=== PATIENT | female | born 1965 | race Caucasian/White ===

== ENCOUNTER 2020-12-30 12:10 | Outpatient (CLI) | payer OTHER, SELFPAY ==
--- NOTE | 2020-12-30 12:19 | XR_ITS ---
WS: [id number] Cervical spine, 3 views, 12/30/2020 Clinical Data: PAIN Comparison: None. Findings: No compression fractures are seen. There is disc space narrowing at C4-C5, C5-C6 and C6-C7. No subluxation is seen. There is anterior osteoarthritic spurring from C4 through C7. There is no pr evertebral soft tissue swelling. The odontoid is unremarkable. The soft tissues of the neck and the l tahir apices are normal. XR/XR cervical spine 3V* [id number] Impression: 1. 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 2. Degenerative disc narrowing at C4-C5, C5-C6 and C6-C7.
--- NOTE | 2020-12-30 12:19 | XR_ITS ---
WS: [id number] Lumbar spine, 3 views, 12/30/2020 Clinical Data: PAIN Comparison: None. Findings: No compression fractures or subluxation is seen. Degenerative disc narrowing at L5-S1 is present. The transverse processes and SI joints are normal. There is anterior osteophyte spurring at L2-L5. XR/XR lumbar spine 2-3V* [id number] Impression: 1. Anterior osteophytic spurring L2-L5. 2. Degenerative disc narrowing at L5-S1.
== END 2020-12-30 12:11 | disposition home or self-care (01) ==
LOC: RAD 12:18
PROVIDERS: Visit Provider Dermatology
DX: M54.5 Low back pain (principal); M47.812 Spondylosis without myelopathy or radiculopathy, cervical region
CPT/HCPCS: 72040; 72100

== ENCOUNTER 2021-02-17 12:53 | Outpatient (CLI) | payer MEDICAID, SELFPAY ==
--- NOTE | 2021-02-17 12:56 | MR_ITS ---
WS: [id number] MRI LUMBAR SPINE NONCONTRAST HISTORY: LUMBAR RADICULOPATHY COMPARISON: None available. TECHNIQUE: Sagittal and axial multisequence imaging is submitted. Small disc protrusion at T8-9 contacting the ventral thoracic cord. Normal posterior lumbar alignment. No marrow edema or fracture. Advanced degenerative disc disease at L5-S1. Conus terminates normally at L1-2 disc level. L1-L2: Normal. L2-L3: Mild ligamentum flavum disease and facet arthritis. No stenosis. L3-L4: Mild ligamentum flavum disease and facet arthritis. No stenosis. L4-L5: Very mild annular disc bulging and facet and ligamentum flavum arthritis. Mild narrowing of th e LEFT foramen. L5-S1: Moderate annular disc bulging and osteophytic ridging. Mild narrowing of the foramen but no hi gh-grade stenosis. Mild disc contact on the nerve roots. MR/MR lumbar spine wo con* [id number] IMPRESSION: 1. Mild bilateral foraminal narrowing at L5-S1 and on the LEFT at L4-5. No sig nificant disc contact or displacement on the nerve roots. 2. Advanced degenerative disc disease at L5-S1.
--- NOTE | 2021-02-17 12:56 | MR_ITS ---
WS: [id number] MRI CERVICAL SPINE NONCONTRAST HISTORY: CERVICAL RADICULOPATHY COMPARISON: None available. Technique: Multiplanar, multisequence noncontrast imaging of the cervical spine. Straightening of the normal cervical lordosis. Slight reversal at the C4-5 level. There is a very small amount of edema within the C5 and C6 vertebral bodies. No fractures. Disc space narrowing and desiccation is mild. Craniocervical junction, C1 and C2 relationship, odontoid process and soft tissues are normal. C2-C3: Normal. C3-C4: Mild annular disc bulging and osteophytic ridging. Mild RIGHT foraminal narrowing due to disc osteophyte. C4-C5: Diffuse annular disc bulging and osteophytic ridging. Very mild central and bilateral foramina l stenosis due to disc osteophyte disease. C5-C6: Central disc protrusion and annular disc bulging with vertebral body osteophytes extending int o the foramina. Mild central with [id number] bilateral foraminal stenosis. C6-C7: Shallow central disc protrusion with mild foraminal narrowing due to osteophyte disease. C7-T1: Normal. Paraspinal soft tissue are normal. MR/MR cervical spin wo con* [id number] IMPRESSION: 1. No high-grade central stenosis. 2. Disc osteophyte disease is most significant at C4-5 and C5-6 with disc and osteophyte encroachment upon the ventral thecal sac and foramina. 3. Mild central and bilateral foraminal stenosis at C4-5. 4. Mild central with [id number] bilateral foraminal stenosis at C5-6. 5. Small central disc protrusions at C5-6 and C6-7.
== END 2021-02-17 12:54 | disposition home or self-care (01) ==
LOC: RADSHAW 12:55
PROVIDERS: PCP Physician Assistant; Visit Provider Physician Assistant
DX: M54.16 Radiculopathy, lumbar region (principal); M51.37 Other intervertebral disc degeneration, lumbosacral region; M25.78 Osteophyte, vertebrae; M48.02 Spinal stenosis, cervical region; M50.222 Other cervical disc displacement at C5-C6 level
CPT/HCPCS: 72141; 72148

== ENCOUNTER 2022-01-03 13:21 | Outpatient (CLI) | payer MEDICAID, SELFPAY ==
--- NOTE | 2022-01-03 13:49 | MM_ITS ---
WS: [id number] BILATERAL 3D TOMOSYNTHESIS DIGITAL SCREENING MAMMOGRAPHY WITH CAD CLINICAL INFORMATION: SCREENING HISTORY: Screening mammogram. No current complaints. COMPARISON: November 25, 2019 TECHNIQUE: Bilateral CC and MLO views. FINDINGS: The breasts are composed of heterogeneous fibroglandular density tissue, which can limit the detectio n of small underlying mass lesions. A few punctate and lucent centered calcifications. Biopsy marker RIGHT breast. No suspicious mass, asymmetry, calcifications, or architectural distortion. No evidence of malignancy. MM/[place] [id number] IMPRESSION: BI-RADS: 2-Benign FOLLOW UP: 1 Year Follow-up Recommend return to annual screening mammography.
== END 2022-01-03 13:22 | disposition home or self-care (01) ==
PROVIDERS: PCP Physician Assistant; Visit Provider Physician Assistant
DX: Z12.31 Encounter for screening mammogram for malignant neoplasm of breast (principal); Q82.8 Other specified congenital malformations of skin
CPT/HCPCS: 17110; 77063; 77067; 99203

== ENCOUNTER → 2022-03-01 15:17 | Outpatient (BNVA) | payer MEDICAID, SELFPAY | PROVIDERS: PCP Physician Assistant; Visit Provider Podiatrist Foot & Ankle Surgery | DX: Q82.8 Other specified congenital malformations of skin (principal); M79.672 Pain in left foot | CPT/HCPCS: 17110; 73630 ==

== ENCOUNTER → 2022-04-13 13:25 | Outpatient (BNVA) | payer MEDICAID, SELFPAY | PROVIDERS: PCP Physician Assistant; Visit Provider Podiatrist Foot & Ankle Surgery | DX: M79.672 Pain in left foot (principal); Q82.8 Other specified congenital malformations of skin | CPT/HCPCS: 17110 ==

== ENCOUNTER → 2022-05-16 12:54 | Outpatient (BNVA) | payer MEDICAID, SELFPAY | PROVIDERS: PCP Physician Assistant; Visit Provider Nurse Practitioner | DX: G43.709 Chronic migraine without aura, not intractable, without status migrainosus (principal) | CPT/HCPCS: 99204 ==

== ENCOUNTER → 2022-09-22 15:30 | Outpatient (BNVA) | payer MEDICAID, SELFPAY | PROVIDERS: PCP Physician Assistant; Visit Provider Obstetrics & Gynecology | DX: R68.82 Decreased libido (principal); Z01.419 Encounter for gynecological examination (general) (routine) without abnormal findings | CPT/HCPCS: 84403; 87624 ==

== ENCOUNTER 2022-12-23 16:12 | Emergency (ER) | payer MEDICAID, SELFPAY ==
[2022-12-23 16:42] VITALS: BP 146/97; PULSE 105; RESP 16; TEMP 37.2; O2SAT 100; BMI 30.2
[2022-12-23 18:02] LABS: Basophils # 0.1 10^3/uL (0.0-0.1); Basophils % 0.7 %; Eosinophils # 0.1 10^3/uL (0.0-0.8); Eosinophils % 0.9 %; Hematocrit 45.1 % (37.0-47.0); Hemoglobin 14.6 g/dL (11.5-15.3); Lymphocytes # 3.4 10^3/uL (0.8-4.8); Lymphocytes % 25.6 %; Mean Corpuscular HGB Conc 32.4 g/dL (30.0-36.0); Mean Corpuscular Hemoglobin 32.4 pg (28.0-34.0); Mean Corpuscular Volume 100.2 fl (81-99); Mean Platelet Volume 10.8 fL (7.4-10.4); Monocytes # 0.6 10^3/uL (0.2-0.9); Monocytes % 4.3 %; Neutrophils # 8.99 10^3/uL (1.8-7.7); Neutrophils % 68.3 %; Nucleated Red Blood Cells % 0 %; Platelet Count 245 10^3/cmm (130-400); White Blood Count 13.2 10^3/uL (4.0-10.0)
[2022-12-23 18:29] LABS: Alanine Aminotransferase 25 U/L (0-33); Albumin Level 4.8 g/dL (3.5-5.2); Alkaline Phosphatase 127 U/L (35-105); Aspartate Amino Transferase 29 U/L (0-32); Blood Urea Nitrogen 14 mg/dL (6-20); Calcium 8.7 mg/dL (8.5-10.5); Carbon Dioxide 23 mmol/L (22-29); Chloride 104 mmol/L (98-107); Creatinine Clr Calc Pharmacy 100.3425; Globulin 3.4 g/dL (1.3-4.6); Glomerular Filtration Rate 103.8 mL/min (90-130); Glucose 110 mg/dL (65-115); Lipase 19 U/L (13-60); Osmolality Calculated 293 mOsm/kg (285-295); Sodium 141 mmol/L (136-145); Total Bilirubin 0.5 mg/dL (0.15-1.2); Total Protein 8.2 g/dL (6.6-8.7)
--- NOTE | 2022-12-23 20:35 | CTR_ITS ---
PROCEDURE INFORMATION: Exam: CT Abdomen And Pelvis Without Contrast Exam date and time: 12/23/2022 8:38 PM Age: 57 years old Clinical indication: Pain and condition or disease; Hernia; Abdominal pain; Prior surgery; Surgery type: Bi ovarian cystectomy; Tubal ligation; Additional info: Llq pain HX hernia TECHNIQUE: Imaging protocol: Computed tomography of the abdomen and pelvis without contrast. Radiation optimization: All CT scans at this facility use at least one of these dose optimization techniques: automated exposure control; mA and/or kV adjustment per patient size (includes targeted exams where dose is matched to clinical indication); or iterative reconstruction. REPORTING DATA: Count of CT and Cardiac NM exams in prior 12 months: This patient has received 0 known CTs and 0 known cardiac nuclear medicine studies in the 12 months prior to the current study. COMPARISON: MR lumbar spine wo con* [id number] 02/17/2021 1:32 PM RADIATION DOSE METRICS: Total DLP (mGy-cm): 662.79 FINDINGS: Liver: 2.3 and 2.4 cm low-density fatty lesions with surrounding calcification in the anterior portion of the right liver, segment 8. Gallbladder and bile ducts: Normal. No calcified stones. No ductal dilation. Pancreas: Normal. No ductal dilation. Spleen: Normal. No splenomegaly. Adrenal glands: Normal. No mass. Kidneys and ureters: Normal. No hydronephrosis. Stomach and bowel: Within the hernia there is also 4.0 x 3.0 x 2.2 cm severe epiploic appendagitis with surrounding inflammation. Coronal series 5, image 18, sagittal series 6, image 19. Axial series 3, image 72. Appendix: No evidence of appendicitis. Intraperitoneal space: Unremarkable. No free air. No significant fluid collection. Vasculature: Calcification of the abdominal aorta and/or iliac arteries consistent with atherosclerotic vessel disease. Lymph nodes: Unremarkable. No enlarged lymph nodes. Urinary bladder: Unremarkable as visualized. Reproductive: 4.8 x 4.5 x 3.6 cm partially calcified right ovary versus other lesion consistent with ovarian neoplasm versus other benign or malignant lesion. Bones/joints: Severe L5-S1 degenerative disc disease and spondylosis with Modic type III sclerotic endplate degenerative changes. Soft tissues: Left lower quadrant hernia which could represent inferior spigelian hernia containing a loop of sigmoid colon. CT/CT abdomen pelvis wo con [id number] IMPRESSION: 1. 2.3 and 2.4 cm low-density fatty lesions with surrounding calcification in the anterior portion of the right liver, segment 8. 2. Left lower quadrant hernia which could represent inferior spigelian hernia containing a loop of sigmoid colon. 3. Within the hernia there is also 4.0 x 3.0 x 2.2 cm severe epiploic appendagitis with surrounding inflammation. Coronal series 5, image 18, sagittal series 6, image 19. Axial series 3, image 72. 4. 4.8 x 4.5 x 3.6 cm partially calcified right ovary versus other lesion consistent with ovarian neoplasm versus other benign or malignant lesion.
--- NOTE | 2022-12-23 20:49 | ED_ITS ---
HPI - Abdominal Pain General: Chief Complaint: Abdominal Pain Stated Complaint: Jim sent/hernia pain Time Seen by Provider: 12/23/22 20:05 Source: patient History of Present Illness: 57-year-old female with a history of left sided groin hernia. She presents from her PCP clinic today, as it had become more tender. Evidently they tried to reduce the hernia, and could not so they sent here for a CT . She is having left lower quadrant pain. No fever, no vomiting, no diarrhea, no blood in the stool. She also has a tick on my back that she would like removed MD elicited complaint: abdominal pain Pertinent past history: other Onset (ago): hour(s) Pain Consistency: constant Location: LLQ Severity: moderate Quality: aching and sharp Radiation: none Migration to: no migration Exacerbating factors: movement Relieving factors: nothing Associated Symptoms: Denies belching, chills, constipation, diarrhea, fever(s), hematochezia, melena, nausea and vomiting Review of Systems Const: Denies: fever(s) or chills Card: Denies: chest pain Resp: Denies: dyspnea GI: Denies: nausea, vomiting, diarrhea, constipation, belching, hematochezia or melena PFSH ED PFSH: Family History Mother Diabetes Stroke Father Diabetes Hypertension Stroke Brother Diabetes Sister Diabetes Denies family history of Colon cancer Ovarian cancer Heart disease Hypercholesteremia Breast cancer Uterine cancer Thyroid disease Physical Exam Const: COMMON NORMALS: no acute distress GENERAL APPEARANCE: cooperative; not ill appearing and not frail appearing HENMT: COMMON NORMALS: normocephalic, atraumatic and Normal external nose present HEAD & SCALP: normocephalic and atraumatic FACE & SINUS: normal facial exam and face symmetric NOSE: Normal external nose present Eye: COMMON NORMALS: Equal, round and reactive pupils present and EOMs intact bilaterally PUPIL: Yes Equal, round and reactive pupils present Neck/C-Spine: GENERAL: Yes trachea midline Chest: CHEST: Yes Symmetrical chest wall rise Resp: COMMON NORMALS: normal respiratory effort, No retractions, No use of accessory muscles and clear to auscultation bilaterally AUSCULTATION: clear to auscultation bilaterally Cardio: COMMON NORMALS: regular rate and regular rhythm RATE: regular rate RHYTHM: regular rhythm GI: OTHER: Tenderness in the left lower quadrant. Palpable mass there. Some discoloration of the skin. It is not hot. Extremity: COMMON NORMALS: no pedal edema Neuro: EMILIA COMA SCALE: document GCS findings Emilia coma scale eye opening: Spontaneous Kindred coma scale verbal response: Orientated Kindred coma scale motor response: Obey commands Emilia coma scale total score: 15 SENSORY EXAM: Yes extremities (intact) Psych: COMMON NORMALS: speech normal SPEECH: Yes normal speech Skin: NARRATIVE SKIN EXAM: Wood tick along the lateral angle of the scapula on the right. Removed with tweezers Course Vital Signs: Vital signs: Vital Signs Temperature 98.9 F 12/23/22 16:42 Pulse Rate 105 H 12/23/22 16:42 Respiratory Rate 16 12/23/22 16:42 Blood Pressure 146/97 12/23/22 16:42 Pulse Oximetry 100 12/23/22 16:42 Oxygen Delivery Me thod 12/23/22 16:42 MDM - Abdominal Pain Medical Decision Making Patient with what on exam appears to be incarcerated left lower quadrant hernia. It is tender on palpation. There are some mild discoloration of the skin. Her vitals are normal. Her white blood cell count is 13. BMP is normal. Urinalysis has not yet been collected her lipase is normal, liver enzymes are normal. She was sent for CT, which has not been read by radiology yet. On my read, there appears to be inflamed loop of bowel in the hernia. IV was ordered for pain medication and/or sedation for the patient to manually reduce the hernia. When the nurse came into the room to start the IV, the patient took her tourniquet off, and said that she wanted to leave. I reevaluated the patient, and told her that there was a problem in her hernia, that there appeared to be an inflamed loop of intestine in her hernia, and if it loses blood supply, it could become necrotic and making her extremely sick and/or septic, and could from this condition. She was told that reduction was necessary to prevent this, that if we could not reduce the hernia, that we would call surgery, and she would likely be admitted. We also told her that after the hernia was reduced successfully in the ER, there was a chance she could go home. She still elected to sign papers to leave AGAINST MEDICAL ADVICE Lab Data 12/23/22 17:54 12/23/22 17:54 Labs/Radiology: Radiology Impressions Abdomen/Pelvis CT 12/23/22 20:35 IMPRESSION: 1. 2.3 and 2.4 cm low-density fatty lesions with surrounding calcification in the anterior portion of the right liver, segment 8. 2. Left lower quadrant hernia which could represent inferior spigelian hernia containing a loop of sigmoid colon. 3. Within the hernia there is also 4.0 x 3.0 x 2.2 cm severe epiploic appendagitis with surrounding inflammation. Coronal series 5, image 18, sagittal series 6, image 19. Axial series 3, image 72. 4. 4.8 x 4.5 x 3.6 cm partially calcified right ovary versus other lesion consistent with ovarian neoplasm versus other benign or malignant lesion. Laboratory Results WBC 13.2 10^3/uL (4.0-10.0) H 12/23/22 17:54 RBC 4.50 10^6/uL (4.1-5.3) 12/23/22 17:54 Hgb 14.6 g/dL (11.5-15.3) 12/23/22 17:54 Hct 45.1 % (37.0-47.0) 12/23/22 17:54 MCV 100.2 fl (81-99) H 12/23/22 17:54 MCH 32.4 pg (28.0-34.0) 12/23/22 17:54 MCHC 32.4 g/dL (30.0-36.0) 12/23/22 17:54 RDW 13.0 % (12.1-15.1) 12/23/22 17:54 Plt Count 245 10^3/cmm (130-400) 12/23/22 17:54 MPV 10.8 fL (7.4-10.4) H 12/23/22 17:54 Neut % (Auto) 68.3 % 12/23/22 17:54 Lymph % (Auto) 25.6 % 12/23/22 17:54 Dougherty % (Auto) 4.3 % 12/23/22 17:54 Eos % (Auto) 0.9 % 12/23/22 17:54 Baso % (Auto) 0.7 % 12/23/22 17:54 Neut # (Auto) 8.99 10^3/uL (1.8-7.7) H 12/23/22 17:54 Lymph # (Auto) 3.4 10^3/uL (0.8-4.8) 12/23/22 17:54 Dougherty # (Auto) 0.6 10^3/uL (0.2-0.9) 12/23/22 17:54 Eos # (Auto) 0.1 10^3/uL (0.0-0.8) 12/23/22 17:54 Baso # (Auto) 0.1 10^3/uL (0.0-0.1) 12/23/22 17:54 Nucleated RBC % (auto) 0 % 12/23/22 17:54 Nucleated RBCs # 0.0 /100WBC 12/23/22 17:54 Sodium 141 mmol/L (136-145) 12/23/22 17:54 Potassium 4.0 mmol/L (3.5-5.1) 12/23/22 17:54 Chloride 104 mmol/L (98-107) 12/23/22 17:54 Carbon Dioxide 23 mmol/L (22-29) 12/23/22 17:54 Anion Gap 18.0 (5-19) 12/23/22 17:54 BUN 14 mg/dL (6-20) 12/23/22 17:54 Creatinine 0.6 mg/dL (0.5-0.9) 12/23/22 17:54 GFR Calculation 103.8 mL/min (90-130) 12/23/22 17:54 Glucose 110 mg/dL (65-115) 12/23/22 17:54 Calculated Osmolality 293 mOsm/kg (285-295) 12/23/22 17:54 Calcium 8.7 mg/dL (8.5-10.5) 12/23/22 17:54 Total Bilirubin 0.5 mg/dL (0.15-1.2) 12/23/22 17:54 AST 29 U/L (0-32) 12/23/22 17:54 ALT 25 U/L (0-33) 12/23/22 17:54 Alkaline Phosphatase 127 U/L (35-105) H 12/23/22 17:54 Total Protein 8.2 g/dL (6.6-8.7) 12/23/22 17:54 Albumin 4.8 g/dL (3.5-5.2) 12/23/22 17:54 Globulin 3.4 g/dL (1.3-4.6) 12/23/22 17:54 Lipase 19 U/L (13-60) 12/23/22 17:54 Discharge Plan Discharge Patient Disposition: Left Against Medical Advice Clinical Impression: Abdominal pain, Spigelian hernia Condition: Stable Prescriptions: No Action Prempro 0.3-1.5 mg tablet 1 tab PO DAILY hydrochlorothiazide 12.5 mg tablet 12.5 mg PO DAILY tizanidine 4 mg capsule 4 mg PO BID PRN aspirin 81 mg tablet,delayed release (DR/EC) 81 mg PO DAILY Victoza 3-Addy 0.6 mg/0.1 mL (18 mg/3 mL) pen injector 0.6 mg SUBCUT DAILY venlafaxine [Effexor XR] 37.5 mg capsule,extended release 24hr 37.5 mg PO DAILY pramipexole 0.25 mg tablet 0.25 mg PO DAILY levocetirizine 5 mg tablet 5 mg PO DAILY atorvastatin 20 mg tablet 20 mg PO DAILY albuterol sulfate [ProAir HFA] 90 mcg/actuation HFA aerosol inhaler 2 puff inhalation Q6H PRN oxycodone-acetaminophen 10-325 mg tablet 1 tab PO Q6H PRN topiramate 25 mg tablet 25 mg PO BID Rx Instructions: Take 1 tab by mouth three times daily for 1 week then take 2 tabs twice daily Nurtec ODT 75 mg tablet,disintegrating 75 mg PO ONCE Qty: 10 0RF Rx Instructions: Take at onset of headache - no more than 1 dose per day or 4 doses per week Referrals: Flores Jim PA [Primary Care Provider] - Patient Instructions: Abdominal Pain (ED) Coding Level of Care Code ED Equipment Associate for Della Calixto
== END 2022-12-23 21:36 | disposition left against medical advice (07) ==
PROVIDERS: Nurse Practitioner Family; Emergency Provider Emergency Medicine; PCP Physician Assistant
DX: K43.9 Ventral hernia without obstruction or gangrene (principal); Z53.21 Procedure and treatment not carried out due to patient leaving prior to being seen by health care provider; Z79.82 Long term (current) use of aspirin
CPT/HCPCS: 36415; 74176; 80053; 83690; 85025; 99285; Q9967

== ENCOUNTER → 2023-03-21 15:03 | Outpatient (BNVA) | payer MEDICAID, SELFPAY | PROVIDERS: PCP Physician Assistant; Visit Provider Surgery | DX: K43.9 Ventral hernia without obstruction or gangrene (principal); N83.8 Other noninflammatory disorders of ovary, fallopian tube and broad ligament | CPT/HCPCS: 99203 ==

== ENCOUNTER 2023-04-26 14:10 | Outpatient (CLI) | payer MEDICAID, SELFPAY ==
--- NOTE | 2023-04-26 14:00 | US_ITS ---
WS: [id number] US pelv w/transvag [id number] HISTORY: N83.202 - Unspecified ovarian cyst, left side COMPARISON: CT abdomen and pelvis 12/23/2022. Uterus: 7.1 cm x 3.8 cm x 3.7 cm. Normal size anteverted uterus. No fibroid or mass. Endometrium: 0.4 cm. Normal size. No mass or increased vascularity. Right ovary: 4.3 cm x 4.0 cm x 4.1 cm. Abnormal RIGHT ovary. In the RIGHT adnexa there is a very hypo echoic mass with shadowing essentially replacing what is the expected ovary. This mass measures 4.0 x 4.1 x 4.3 cm. There is a small amount of peripheral vascularity identified. There are a few foci of calcification. Left ovary: Not identified. No adnexal mass. No free fluid in the cul-de-sac. US/US pelv w/transvag [id number] IMPRESSION: 1. Solid mass RIGHT adnexa. This is most consistent with an ovarian mass/neopl asm until proven otherwise and needs to be further evaluated. 2. O-RADS 5; high risk for malignancy. Recommend surgical evaluation. 3. No ascites.
== END 2023-04-26 14:11 | disposition home or self-care (01) ==
PROVIDERS: PCP Physician Assistant; Visit Provider Obstetrics & Gynecology
DX: N83.202 Unspecified ovarian cyst, left side (principal); N83.8 Other noninflammatory disorders of ovary, fallopian tube and broad ligament
CPT/HCPCS: 76830; 76856

== ENCOUNTER 2023-05-15 09:23 | Day surgery (SDC) | payer MEDICAID, SELFPAY ==
[2023-05-15] VITALS (11 sets, daily range): BP systolic 129–201; BP diastolic 81–152; PULSE 57–75; RESP 10–24; TEMP 36.1–36.2; O2SAT 92–100; BMI 30.5
--- NOTE | 2023-05-15 09:32 | PM.HP ---
Providers/Chief Complaint Primary Care Provider: Flores Jim Chief Complaint: 92852 K82.8 History of Present Illness Saloni Bucio is a 58 year old female Medications/Allergies Home Medications Medication Instructions Recorded Confirmed Last Taken Type albuterol sulfate 90 mcg/actuation 2 puff inhalation Q6H PRN 01/03/22 05/12/23 05/12/23 History aerosol inhaler (ProAir HFA) Shortness Of Breath aspirin 81 mg tablet,delayed 81 mg PO DAILY 01/03/22 05/12/23 05/05/23 History release atorvastatin 20 mg tablet 20 mg PO DAILY 01/03/22 05/12/23 05/05/23 History levocetirizine 5 mg tablet 5 mg PO DAILY 01/03/22 05/12/23 05/05/23 History oxycodone-acetaminophen 10 mg-325 1 tab PO Q6H PRN Pain 01/03/22 05/12/23 05/10/23 History mg tablet pramipexole 0.25 mg tablet 0.25 mg PO DAILY 01/03/22 05/12/23 05/11/23 History tizanidine 4 mg capsule 4 mg PO BID PRN Muscle Spasm 01/03/22 05/12/23 05/08/23 History venlafaxine 37.5 mg 37.5 mg PO DAILY PRN Anxiety 01/03/22 05/12/23 05/09/23 History capsule,extended release 24 hr (Effexor XR) Allergies Allergy/AdvReac Type Severity Reaction Status Date / Time varenicline [From Chantix] Allergy Mild Hives Verified 05/15/23 09:29 bee venom protein (honey bee) Allergy Unknown Verified 05/15/23 09:29 grapefruit Allergy Unknown Verified 05/15/23 09:29 PFSH Acute PFSH: Family History Mother Diabetes Stroke Father Diabetes Hypertension Stroke Brother Diabetes Sister Diabetes Denies family history of Colon cancer Ovarian cancer Heart disease Hypercholesteremia Breast cancer Uterine cancer Thyroid disease Social History Substance/Drug Use: never Female Reproductive History: Date of last menstrual period: 09/25/09 Vitals/I&O/Wt Last Vital Signs O2 Del Method Room Air 05/12/23 10:57 A&P Assessment and plan (1) Ventral hernia: Plan Laparoscopic repair of ventral hernia with mesh Attestations Medical Necessity Statement*: Home Coding Level of Care Code Acute Code for Chg Fwd Diagnoses Ventral hernia K43.9
[2023-05-15] MEDS: scopolamine 1.5 Patch 1 PATCH TRANSDERMA (09:37)
[2023-05-15] MEDS: sodium chloride 0.9% 1,000 ML 30 ML IV (09:37)
--- NOTE | 2023-05-15 10:44 | ANES.PREANE2 ---
Pre-Anesthetic Assessment Height/Weight: Height 1.57 m Weight 75.75 kg Temp Pulse Resp BP Pulse Ox O2 Del Method 97.2 F L 68 16 165/86 100 Room Air 05/15/23 09:24 05/15/23 09:24 05/15/23 09:24 05/15/23 09:24 05/15/23 09:24 05/15/23 09:43 Operation Date: 05/15/23 10:30 Proposed Procedures p : 67012 lap repair ventral hernia w/mesh K43.9(Not Applicable) - Marvin Cleveland DO Familial anesthetic complications: none Was Beta Tristin taken within 24 hours: N/A Was Clonidine taken within 24 hours: N/A Last intake: Intake Last Liquid Date 05/14/23 Last Liquid Time 23:00 Last Solid Date 05/14/23 Last Solid Time 23:00 Social Alcohol and Tobacco Exam alert, oriented x 3 and regular rate & rhythm Airway Submandibular: within normal limits Cervical ROM: within normal limits Mallampati: Class II Dentition: chipped (lower) and false (upper) Pulmonary Chronic Obstructive Pulmonary Disease Metabolic Hyperlipidemia and Morbid Obesity Neuropsych Anxiety and Depression Anesthetic Plan ASA status: 3 Anesthesia: General Medications/Allergies Home Medications Medication Instructions Recorded Confirmed Last Taken Type albuterol sulfate 90 mcg/actuation 2 puff inhalation Q6H PRN 01/03/22 05/12/23 05/12/23 History aerosol inhaler (ProAir HFA) Shortness Of Breath aspirin 81 mg tablet,delayed 81 mg PO DAILY 01/03/22 05/12/23 05/05/23 History release atorvastatin 20 mg tablet 20 mg PO DAILY 01/03/22 05/12/23 05/05/23 History levocetirizine 5 mg tablet 5 mg PO DAILY 01/03/22 05/12/23 05/05/23 History oxycodone-acetaminophen 10 mg-325 1 tab PO Q6H PRN Pain 01/03/22 05/12/23 05/10/23 History mg tablet pramipexole 0.25 mg tablet 0.25 mg PO DAILY 01/03/22 05/12/23 05/11/23 History tizanidine 4 mg capsule 4 mg PO BID PRN Muscle Spasm 01/03/22 05/12/23 05/08/23 History venlafaxine 37.5 mg 37.5 mg PO DAILY PRN Anxiety 01/03/22 05/12/23 05/09/23 History capsule,extended release 24 hr (Effexor XR) Allergies Allergy/AdvReac Type Severity Reaction Status Date / Time varenicline [From Chantix] Allergy Mild Hives Verified 05/15/23 09:29 bee venom protein (honey bee) Allergy Unknown Verified 05/15/23 09:29 grapefruit Allergy Unknown Verified 05/15/23 09:29 Current Medications Generic Name Dose Route Start Last Admin Trade Name Freq PRN Reason Stop Dose Admin Sodium Chloride 1,000 mls @ 30 mls/hr 05/15/23 09:30 05/15/23 09:37 Sodium Chloride 0.9% IV 05/16/23 09:29 30 mls/hr .Q24H TEJA Administration PFSH Anesthesia Family History Mother Diabetes Stroke Father Diabetes Hypertension Stroke Brother Diabetes Sister Diabetes Denies family history of Colon cancer Ovarian cancer Heart disease Hypercholesteremia Breast cancer Uterine cancer Thyroid disease Social History Substance/Drug Use: never Female Reproductive History Date of last menstrual period: 09/25/09 Data Anesthesia Cardiac Studies: No Data to Display
[2023-05-15] MEDS: ceFAZolin 2,000 MG in sodium chloride 0.9% (plus) 50 ML 100 MG IV (10:55)
[2023-05-15] MEDS: lidocaine-epi 2% 20 mL INJ INJECTION (11:26)
--- NOTE | 2023-05-15 12:08 | PM.OP ---
Operative Report Date of procedure: May 15, 2023 Pre-op diagnosis: Spigelian hernia Post-op diagnosis: Incarcerated spigelian hernia Procedure done: Laparoscopic repair of incarcerated spigelian hernia Extensive lysis of adhesions Implants: 11.4 cm round Ventralight mesh Specimens removed/disposition: None Surgeon: Dr. Marvin Cleveland DO Anesthesia: General Estimated blood loss (mL): 5 Complications: None apparent Findings: 2 cm hernia defect containing colon and omentum Brief History: This is a very pleasant 58-year-old female who presented to my office this for Galeon hernia. Laparoscopic repair with mesh was indicated. The risk and benefits were explained and documented. Procedure: Patient was wheeled into the operative room and placed on the OR table in a supine position. Abdomen was inspected prepped and draped in usual sterile fashion. Time-out was performed and all present were in agreement. A 15 blade scalp was used to make a stab incision incision left upper quadrant. A Veress needle was placed into the incision and intra-abdominal insufflation was brought to 15 millimeters of mercury. A 5 mm trocar was placed into the right upper quadrant. A 12 millimeter trocar was placed into the right lower quadrant. An inferior left spigelian hernia was identified containing omentum and colon. There were significant dense adhesions causing incarceration of the hernia. A second 5 mm trocar was placed between the 2 trocars. Greater than 30 minutes of lysis of adhesions was performed with the Enseal. Eventually the hernia was reduced and the hernia defect measured 2 cm in diameter. The energy but device was then used to cut out the hernia sac. An 11.4 cm ventral light mesh was placed into the abdomen and brought up through the umbilicus using an the Quinn-Tate. The mesh was then tacked in place in a double crown fashion. The skeleton of the mesh was removed via the left lower quadrant. The hernia sac was then removed from the abdomen via the left lower quadrant. The left lower quadrant port site was closed with an 0 Vicryl suture in a Quinn-Tate in a [id number] fashion. Incisions were closed with 4 O Vicryl in a subcuticular interrupted fashion. Skin glue was applied. Patient tolerated the procedure well.
[2023-05-15] MEDS: labetalol 5 mg/mL SDV 20mL IVP (12:35)
[2023-05-15] MEDS: oxyCODONE-APAP 10-325 mg Tablet 1 TAB PO (13:29)
--- NOTE | 2023-05-15 16:52 | ANE.PACU2 ---
Inpatient post-anesthesia follow up: Airway intact: Yes Vital signs: Temperature 97 F Pulse Rate 57 Respiratory Rate 18 Blood Pressure 138/92 Pulse Oximetry 95 Oxygen Delivery Me thod Room Air Oxygen Flow Rate 6 Fraction of Inspir ed Oxygen Hydration adequate: Yes Nausea and vomiting: No Pain level: 2 Mental status: Baseline
== END 2023-05-15 13:57 | disposition home or self-care (01) ==
PROVIDERS: PCP Physician Assistant; Visit Provider Surgery
PROC: 0WQF4ZZ Repair Abdominal Wall, Percutaneous Endoscopic Approach (ICD-10-PCS; CPT 49592; principal; 2023-05-15 10:30)
DX: K43.9 Ventral hernia without obstruction or gangrene (principal); J44.9 Chronic obstructive pulmonary disease, unspecified; E78.5 Hyperlipidemia, unspecified; E66.01 Morbid (severe) obesity due to excess calories; Z68.30 Body mass index [BMI] 30.0-30.9, adult; Z79.82 Long term (current) use of aspirin
CPT/HCPCS: 49592; C1781; J0690; J1100; J1170; J1200; J2250; J2405; J3010; J3490; J7030

== ENCOUNTER 2023-05-18 16:24 | Emergency (ER) | payer MEDICAID, SELFPAY ==
[2023-05-18] VITALS (7 sets, daily range): BP systolic 119–139; BP diastolic 67–87; PULSE 93–105; RESP 18; TEMP 38.1; O2SAT 92–96
--- NOTE | 2023-05-18 17:37 | XRR_ITS ---
PROCEDURE INFORMATION: Exam: XR Abdomen Exam date and time: 05/18/2023 5:56 PM Age: 58 years old Clinical indication: Abdominal pain; Generalized; Prior surgery; Surgery date: 3-7 days post-operative; Surgery type: Hernia; Additional info: Abd pain, post surgical, PT refused to lay down TECHNIQUE: Imaging protocol: Radiologic exam of the abdomen. Views: 2 Views. Upright and supine views. COMPARISON: CT abdomen pelvis con [id number] 12/23/2022 8:38 PM FINDINGS: Gastrointestinal tract: Scattered gas in the colon and rectum. An air-fluid level projects over the left hip joint, in the region of the hernia on the prior CT. No small bowel obstruction. Intraperitoneal space: Pneumoperitoneum beneath the left and right diaphragm. Bones/joints: Unremarkable for age. XR/XR acute abdomen series [id number] IMPRESSION: 1. Pneumoperitoneum. This could relate to recent surgery but bowel perforation is not excluded. 2. Air-fluid level projecting over the left hip joint is in a similar location as to the previous hernia. A persistent hernia containing bowel or an abscess are not excluded. 3. Follow-up with CT imaging is recommended.
--- NOTE | 2023-05-18 17:38 | ED_ITS ---
HPI - Abdominal Pain General: Chief Complaint: Abdominal Pain Stated Complaint: hernia surgery mon, severe abd pain Time Seen by Provider: 05/18/23 17:36 History of Present Illness: 58-year-old female comes in today with complaints of gas pain. Patient had surgery on Monday for hernia repair. Patient reports that she has had increased pain and discomfort for the last 2 days for what she thinks is gas pain. Patient appears nontoxic. Patient does appear in mild to moderate pain. Patient does report passing of flatus and belching. Associated Symptoms: Reports nausea; Denies chills, constipation, diarrhea, fever(s) and vomiting Review of Systems General: Reports: 10 or more systems reviewed and unremarkable except in HPI and below Const: Denies: fever(s) or chills Card: Denies: chest pain Resp: Denies: dyspnea GI: Reports: abdominal pain and nausea; Denies: vomiting, diarrhea or constipation : Denies: difficulty voiding Musc: Denies: neck pain or back pain Skin/Breast: Denies: rash Neuro: Denies: numbness in extremities PFSH ED PFSH: Family History Mother Diabetes Stroke Father Diabetes Hypertension Stroke Brother Diabetes Sister Diabetes Denies family history of Colon cancer Ovarian cancer Heart disease Hypercholesteremia Breast cancer Uterine cancer Thyroid disease Social History Substance/Drug Use: never Physical Exam Const: COMMON NORMALS: alert HENMT: COMMON NORMALS: normocephalic HEAD & SCALP: normocephalic THROAT: posterior oropharynx normal Neck/C-Spine: COMMON NORMALS: full ROM Resp: COMMON NORMALS: normal respiratory effort and clear to auscultation bilaterally AUSCULTATION: clear to auscultation bilaterally Cardio: COMMON NORMALS: regular rate and regular rhythm RATE: regular rate RHYTHM: regular rhythm GI: COMMON NORMALS: Soft to palpation (Mild distention) PALPATION: Yes Soft to palpation (Mild distention), Yes Tenderness to palpation present (GI) (Incr ease at surgery site), No Guarding due to palpation present (GI) and No Rigid due to palpation Back/Pelvis: COMMON NORMALS: thoracic and lumbar spine normal to inspection Extremity: COMMON NORMALS: no pedal edema Neuro: SENSORIUM/ORIENTATION: Yes alert Skin: COMMON NORMALS: turgor normal GENERAL SKIN EXAM: turgor normal Course ED course: 2049, reviewed CT scan results with Dr. Cleveland, he is concerned for ischemic bowel due to some significant abnormalities with hernia when he repaired it, he is out of town at this time and asks that we would refer patient to colorectal surgery at a tertiary center for further evaluation and treatment. Patient was given a dose of Zosyn and we will contact tertiary center for transfer and further evaluation and treatment. 2149, after discussion with tertiary center the on-call colorectal surgeon felt that the general surgeon should be able to manage this at our facility. I reached out to Dr. Belle and he agreed to come in to evaluate the patient and then talk to the tertiary center. 9, we have attempted placement of patient at [facility] with no bed availability at this time. 29, discussed patient with Dr. Marciano Vaz at [facility] in the [place] they accepted patient for further evaluation and treatment. Vital Signs: Vital signs: Vital Signs Temperature 100.5 F H 05/18/23 16:32 Pulse Rate 98 05/19/23 00:30 Respiratory Rate 18 05/19/23 00:32 Blood Pressure 121/73 05/19/23 00:30 Pulse Oximetry 93 05/19/23 00:30 Oxygen Delivery Me thod Nasal Cannula 05/19/23 00:30 Oxygen Flow Rate 2 05/19/23 00:30 MDM - Abdominal Pain Medical Decision Making 58-year-old female comes in today for what she believes is gas pain postsurgery. Patient had a hernia repair on Monday and has had increased gas pain over the last 2 days. Patient does report belching and passing flatus. On exam patient has some mild distention of the abdomen but is soft to palpation. Patient does have some tenderness at the site of the surgery in the right lower quadrant. Patient denies any chills or fever that she is noted at home. Patient did have a temperature of 100.5 in the emergency department but otherwise normal vital signs. Differential diagnosis includes not limited to bowel obstruction, ileus, postsurgical gas pain, urinary tract infection, pneumonia. CBC was unremarkable, CMP was unremarkable. CT of the chest and abdomen noted some pneumoperitoneum, inflamed distal ascending and proximal sigmoid colon with wall thickening and pneumatosis, and a 5.1 cm air-fluid level in the lower left abdominal wall. I reviewed the abnormalities with Dr. Cleveland, surgeon that had performed the procedure. He recommended the patient be transferred to a colorectal surgeon as he was out of town for further evaluation and treatment. He is concerned that there may be ischemia in the colon due to some com plications during the hernia repair. I was able to get patient accepted at [facility] in [facility]. Patient be transported to their facility for further evaluation and treatment by colorectal surgeon. Lab Data 05/18/23 18:30 05/18/23 18:30 Labs/Radiology: Radiology Impressions Chest/Abdomen X-ray 05/18/23 17:37 IMPRESSION: 1. Pneumoperitoneum. This could relate to recent surgery but bowel perforation is not excluded. 2. Air-fluid level projecting over the left hip joint is in a similar location as to the previous hernia. A persistent hernia containing bowel or an abscess are not excluded. 3. Follow-up with CT imaging is recommended. ADDENDUM: 05/18/235 THIS REPORT CONTAINS FINDINGS THAT MAY BE CRITICAL TO PATIENT CARE. The findings were verbally communicated via telephone conference with Dr Merino at 7:03 PM CDT on 05/18/2023. The findings were acknowledged and understood. Abdomen/Pelvis CT 05/18/23 20:01 IMPRESSION: 1. Inflamed distal descending and proximal sigmoid colon with wall thickening and pneumatosis. This is most likely infectious colitis. Ischemia is not excluded. 2. Pneumoperitoneum with gas anterior to the distal descending colon. This could relate to the recent surgery but rupture of the colon wall is not excluded. 3. 5.1 cm air-fluid level in the lower left abdominal wall, in the region of the previous hernia defect. This may represent normal post surgical fluid and gas, but an early abscess is not excluded. ADDENDUM: 05/18/232039 THIS REPORT CONTAINS FINDINGS THAT MAY BE CRITICAL TO PATIENT CARE. The findings were verbally communicated via telephone conference with BRANDT HOUSTON at 8:39 PM CDT on 05/18/2023. The findings were acknowledged and understood. ADDENDUM: 05/18/232053 4.6 cm partially calcified right adnexal mass is not significantly changed in size upon further review. This could represent a fibroid arising from the right broad ligament. An ovarian neoplasm is not excluded. Surgical consultation is recommended. Laboratory Results WBC 9.81 10^3/uL (3.29-11.43) 05/18/23 18: RBC 3.99 10^6/uL (3.85-5.65) 05/18/23 18:30 Hgb 13.40 g/dL (11.27-16.99) 05/18/23 18:30 Hct 40.7 % (36-47) 05/18/23 18: MCV 102.0 fl (85-98) H 05/18/23 18:30 MCH 33.6 pg (27-33) H 05/18/23 18: MCHC 32.9 g/dL (30-55) 05/18/23 18: RDW 12.5 % (12.1-15.1) 05/18/23 18: Plt Count 174 10^3/cmm (157-399) 05/18/23 18: MPV 11.9 fL (7.4-10.4) H 05/18/23 18:30 Neut % (Auto) 83.2 % 05/18/23 18:30 Lymph % (Auto) 11.8 % 05/18/23 18:30 [place] % (Auto) 4.0 % 05/18/23 18: Eos % (Auto) 0.3 % 05/18/23 18: Baso % (Auto) 0.4 % 05/18/23 18:30 Neut # (Auto) 8.16 10^3/uL (1.8-7.7) H 05/18/23 18:30 Lymph # (Auto) 1.2 10^3/uL (0.8-4.8) 05/18/23 18:30 Winston # (Auto) 0.4 10^3/uL (0.2-0.9) 05/18/23 18: Eos # (Auto) 0.0 10^3/uL (0.0-0.8) 05/18/23 18: Baso # (Auto) 0.0 10^3/uL (0.0-0.1) 05/18/23 18: Nucleated RBC % (auto) 0 % 05/18/23 18: Nucleated RBCs # 0.0 /100WBC 05/18/23 18:30 Sodium 139 mmol/L (136-145) 05/18/23 18:30 Potassium 4.3 mmol/L (3.5-5.1) 05/18/23 18:30 Chloride 102 mmol/L (98-107) 05/18/23 18:30 Carbon Dioxide 21 mmol/L (22-29) L 05/18/23 18:30 Anion Gap 20.3 (5-19) H 05/18/23 18:30 BUN 15 mg/dL (6-20) 05/18/23 18:30 Creatinine 0.7 mg/dL (0.5-0.9) 05/18/23 18:30 GFR Calculation 86.6 mL/min (90-130) L 05/18/23 18:30 Glucose 137 mg/dL (65-115) H 05/18/23 18:30 Calculated Osmolality 291 mOsm/kg (285-295) 05/18/23 18:30 Lactic Acid 1.2 mmol/L (0.5-2.2) 05/18/23 21:27 Calcium 9.8 mg/dL (8.5-10.5) 05/18/23 18:30 Total Bilirubin 0.6 mg/dL (0.15-1.2) 05/18/23 18:30 AST 31 U/L (0-32) 05/18/23 18:30 ALT 21 U/L (0-33) 05/18/23 18:30 Alkaline Phosphatase 130 U/L (35-105) H 05/18/23 18:30 C-Reactive Protein 135.7 mg/L (0.0-4.9) H 05/18/23 21:27 Total Protein 7.7 g/dL (6.6-8.7) 05/18/23 18:30 Albumin 4.0 g/dL (3.5-5.2) 05/18/23 18:30 Globulin 3.7 g/dL (1.3-4.6) 05/18/23 18:30 Urine Color Yellow (Yellow) 05/18/23 19:56 Urine Appearance Sl hazy (CLEAR) A 05/18/23 19:56 Urine pH 5 (5-7) 05/18/23 19:56 Ur Specific [place] 1.025 (1.005-1.030) 05/18/23 19:56 Urine Protein Neg (Negative) 05/18/23 19:56 Urine Glucose (UA) Norm (Normal) 05/18/23 19:56 Urine Ketones 1+ (Negative) H 05/18/23 19:56 Urine Blood Neg (Negative) 05/18/23 19:56 Urine Nitrate Negative (Negative) 05/18/23 19:56 Urine Bilirubin Neg (Negative) 05/18/23 19:56 Urine Urobilinogen 1 mg/dL (Negative) H 05/18/23 19:56 Ur Leukocyte Esterase Negative (Negative) 05/18/23 19:56 Urine RBC 0-4 /hpf (0-2) H 05/18/23 19:56 Urine WBC 0-4 /hpf (0-5) H 05/18/23 19:56 Ur Squamous Epith Cells 15-25 /hpf (0-5) H 05/18/23 19:56 Amorphous Sediment Not Reportable 05/18/23 19:56 Urine Bacteria 1+ /hpf (NONE) H 05/18/23 19:56 Urine Yeast 1+ /hpf H 05/18/23 19:56 Discharge Plan Discharge Patient Disposition: Xfer Short-Term Hosp Clinical Impression: Ischemic colon, Status post hernia repair Condition: Stable Referrals: Flores Jim PA [Primary Care Provider] - Coding Level of Care Code ED Washroom Cleaner for Della Calixto
[2023-05-18] MEDS: sodium chloride 0.9% 1,000 ML 999 ML IV (18:34)
[2023-05-18 18:40] LABS: Basophils % 0.4 %; Eosinophils % 0.3 %; Hematocrit 40.7 % (36-47); Lymphocytes # 1.2 10^3/uL (0.8-4.8); Lymphocytes % 11.8 %; Mean Corpuscular HGB Conc 32.9 g/dL (30-55); Mean Corpuscular Hemoglobin 33.6 pg (27-33); Mean Platelet Volume 11.9 fL (7.4-10.4); Monocytes # 0.4 10^3/uL (0.2-0.9); Neutrophils # 8.16 10^3/uL (1.8-7.7); Neutrophils % 83.2 %; Nucleated Red Blood Cells % 0 %; Platelet Count 174 10^3/cmm (157-399); Red Blood Count 3.99 10^6/uL (3.85-5.65); Red Cell Distribution Width 12.5 % (12.1-15.1); White Blood Count 9.81 10^3/uL (3.29-11.43)
[2023-05-18 18:59] LABS: Alanine Aminotransferase 21 U/L (0-33); Alkaline Phosphatase 130 U/L (35-105); Aspartate Amino Transferase 31 U/L (0-32); Blood Urea Nitrogen 15 mg/dL (6-20); Calcium 9.8 mg/dL (8.5-10.5); Carbon Dioxide 21 mmol/L (22-29); Chloride 102 mmol/L (98-107); Globulin 3.7 g/dL (1.3-4.6); Glomerular Filtration Rate 86.6 mL/min (90-130); Glucose 137 mg/dL (65-115); Osmolality Calculated 291 mOsm/kg (285-295); Sodium 139 mmol/L (136-145); Total Bilirubin 0.6 mg/dL (0.15-1.2); Total Protein 7.7 g/dL (6.6-8.7)
[2023-05-18 19:10] LABS: Anion Gap 20.3 (5-19); Potassium 4.3 mmol/L (3.5-5.1)
[2023-05-18] MEDS: ondansetron 2 mg/ML SDV 2 mL 4 MG IVP (19:13)
[2023-05-18] MEDS: HYDROmorphone 1 mg/mL INJ 1 mL IVP (19:13)
--- NOTE | 2023-05-18 20:01 | CTR_ITS ---
PROCEDURE INFORMATION: Exam: CT Abdomen And Pelvis Without Contrast Exam date and time: 05/18/2023 8:05 PM Age: 58 years old Clinical indication: Abdominal pain; Localized; Prior surgery; Surgery date: 3-7 days post-operative; Surgery type: Ventral hernia repair three days ago. Ovarian cystectomy; Patient HX: C/O severe lower abd pain post hernia surgery three days ago. ; Additional info: Abnormal xray TECHNIQUE: Imaging protocol: Computed tomography of the abdomen and pelvis without contrast. Radiation optimization: All CT scans at this facility use at least one of these dose optimization techniques: automated exposure control; mA and/or kV adjustment per patient size (includes targeted exams where dose is matched to clinical indication); or iterative reconstruction. REPORTING DATA: Count of CT and Cardiac NM exams in prior 12 months: This patient has received [address] and 0 known cardiac nuclear medicine studies in the 12 months prior to the current study. COMPARISON: CT abdomen pelvis wo con [id number] 12/23/2022 8:38 PM RADIATION DOSE METRICS: Total DLP (mGy-cm): 765.91 FINDINGS: Lungs: Small calcified granulomas in the right lung base. Mild atelectasis. Liver: Stable peripherally calcified fat containing nodules in the superior liver, measuring 2.2 cm and 2.5 cm. Gallbladder and bile ducts: Normal. No calcified stones. No ductal dilation. Pancreas: Normal. No ductal dilation. Spleen: Normal. No splenomegaly. Adrenal glands: Normal. No mass. Kidneys and ureters: 3 mm calculus in the inferior left kidney. The kidneys are otherwise unremarkable. No hydronephrosis. Stomach and bowel: Diverticulosis of the distal descending and proximal sigmoid colon. There is focal wall thickening in the distal descending and proximal sigmoid colon with gas in the bowel wall. The colon has been reduced from the previous hernia in the lower left abdominal wall. Appendix: The appendix is not visualized. No secondary signs of appendicitis. Intraperitoneal space: Pneumoperitoneum in the upper, anterior, and lower left peritoneal cavity. Mild pelvic ascites, Hounsfield units 20. Extraluminal gas anterior to the distal descending colon. Vasculature: Mild arterial calcifications. No aneurysm. Lymph nodes: Unremarkable. No enlarged lymph nodes. Urinary bladder: Unremarkable as visualized. Reproductive: Slightly larger 4.6 cm mass in the right adnexa, adjacent to or arising from the right ovary. The uterus and left ovary are unremarkable. Bones/joints: Unremarkable. No acute fracture. Soft tissues: There is an air-fluid level in the lower left abdominal wall hernia defect measuring 5.1 x 2.8 x 5.1 cm. Soft tissue edema in the lateral abdominal wall, left greater than right. Gas in the lower left abdominal wall. Mild fat stranding in the upper, lower, and periumbilical right abdominal wall, consistent with trocar sites. CT/CT abdomen pelvis wo con [id number] IMPRESSION: 1. Inflamed distal descending and proximal sigmoid colon with wall thickening and pneumatosis. This is most likely infectious colitis. Ischemia is not excluded. 2. Pneumoperitoneum with gas anterior to the distal descending colon. This could relate to the recent surgery but rupture of the colon wall is not excluded. 3. 5.1 cm air-fluid level in the lower left abdominal wall, in the region of the previous hernia defect. This may represent normal post surgical fluid and gas, but an early abscess is not excluded.
[2023-05-18 20:14] LABS: Add Urine Microscopic? YES; Bilirubin Urine Neg (Negative); Blood Urine Neg (Negative); Glucose Urine UA Norm (Normal); Ketones Urine 1+ (Negative); Leukocyte Esterase Urine Negative (Negative); Nitrate Urine Negative (Negative); Protein Urine Neg (Negative); RBC Urine 0-4 /hpf (0-2); Specific Gravity, Urine 1.025 (1.005-1.030); Squamous Epithelial Cell Urine 15-25 /hpf (0-5); Urine Appearance SL Hazy (CLEAR); Urine Color Yellow (Yellow); Urobilinogen Urine 1 mg/dL (Negative); WBC Urine 0-4 /hpf (0-5); pH Urine 5 (5-7)
[2023-05-18 20:15] LABS: Add Urine Culture? No; Bacteria Urine 1+ /hpf
--- NOTE | 2023-05-18 20:30 | PC.NURSE ---
PATIENT PLACED ON 2L NC DUE TO OXYGEN SATURATION DROPPING TO 88%. CELSO NOTIFIED.
[2023-05-18] MEDS: piperacillin-tazobactam 3.375 GM in sodium chloride 0.9% (plus) 50 ML IV (21:55)
[2023-05-18 21:58] LABS: C Reactive Protein 135.7 mg/L (0.0-4.9); Lactic Sepsis W/Reflex 1.2 mmol/L (0.5-2.2)
--- NOTE | 2023-05-18 22:50 | P.CONIM_ITS ---
Providers/Reason For Consult Consulting Physician/Specialty*: General Surgery Reason for Consult*: Abdominal pain, bowel ischemia Primary Care Provider: Flores Jim History of Present Illness History of Present Illness Saloni Bucio is a 58 year old female who is POD 3 s/p laparoscopic repair of spigelian hernia by Dr. Cleveland. Patient presents to the ER today complaining of moderate abdominal pain and distension that she identified as gas pain. on the emergency department workup was remarkable for normal WBC, and a CT scan of the abdomen showing evidence of thickening of the descending/sigmoid colon at the level of the hernia repair which is concerning for possible bowel ischemia. there is also small pneumoperitoneum that may be due to laparoscopy and redemostration of hernia defect in the LLQ. Due to this findings my colleage Dr. Cleveland was contacted by the emergency department and after discussion of the c ase, considered that the best option for the patient is transfer to higher level of care for possible surgical intervention. I have been asked to evaluate the patient while she is in our institution. On my interview patient states that pain has been gradually increasing since yesterday. She had last bowel movement and gas this morning. currentlly still has good appetite. denies fever, chills or any other symptoms concerning for sepsis. Review of Systems Narrative: 10 point ROS was done and is negative otherwise noted on HPI Medications/Allergies Home Medications Medication Instructions Recorded Confirmed Last Taken Type albuterol sulfate 90 mcg/actuation 2 puff inhalation Q6H PRN 01/03/22 05/12/23 05/12/23 History aerosol inhaler (ProAir HFA) Shortness Of Breath aspirin 81 mg tablet,delayed 81 mg PO DAILY 01/03/22 05/12/23 05/05/23 History release atorvastatin 20 mg tablet 20 mg PO DAILY 01/03/22 05/12/23 05/05/23 History levocetirizine 5 mg tablet 5 mg PO DAILY 01/03/22 05/12/23 05/05/23 History oxycodone-acetaminophen 10 mg-325 1 tab PO Q6H PRN Pain 01/03/22 05/12/23 05/10/23 History mg tablet pramipexole 0.25 mg tablet 0.25 mg PO DAILY 01/03/22 05/12/23 05/11/23 History tizanidine 4 mg capsule 4 mg PO BID PRN Muscle Spasm 01/03/22 05/12/23 05/08/23 History venlafaxine 37.5 mg 37.5 mg PO DAILY PRN Anxiety 01/03/22 05/12/23 05/09/23 History capsule,extended release 24 hr (Effexor XR) Allergies Allergy/AdvReac Type Severity Reaction Status Date / Time varenicline [From Chantix] Allergy Mild Hives Verified 05/15/23 09:29 bee venom protein (honey bee) Allergy Unknown Verified 05/15/23 09:29 grapefruit Allergy Unknown Verified 05/15/23 09:29 Iodinated Contrast Media Allergy Unknown Verified 05/18/23 20:03 PFSH Acute PFSH: Family History Mother Diabetes Stroke Father Diabetes Hypertension Stroke Brother Diabetes Sister Diabetes Denies family history of Colon cancer Ovarian cancer Heart disease Hypercholesteremia Breast cancer Uterine cancer Thyroid disease Social History Substance/Drug Use: never Vitals/I&O/Wt Last Vital Signs Temp 100.5 F H 05/18/23 16:32 Pulse 93 05/18/23 22:30 Resp 18 05/18/23 19:13 BP 119/67 05/18/23 22:30 Pulse Ox 93 05/18/23 22:30 O2 Del Method Nasal Cannula 05/18/23 22:30 O2 Flow Rate 2 05/18/23 22:30 05/18/23 05/18/23 05/18/23 06:59 14:59 22:59 Intake Total 1050 / 1050 Balance 1050 / 1050 Weight last 48 hrs Weight 167 lb Physical Exam Narrative: Gen: alert and oriented, well developed CV: RRR, normal HR and BP Res: equal chest rise GI: Abdomen is soft, there is tenderness on the LLQ, no peritoneal signs or rebound tenderness noted Data 05/18/23 18:30 05/18/23 18:30 Micro: Microbiology 05/18/23 21:33 Blood Culture - Preliminary Blood SPECIMEN COLLECTED 05/18/23 21:27 Blood Culture - Preliminary Blood SPECIMEN COLLECTED A&P Assessment and plan (1) Ischemic colon: (2) Status post hernia repair: Plan After a complete history, physical examination and review of all available clinical data, the following is my assessment. Patient s/p spigelian hernia repair, presents with clinical picture concerning for colonic ischemia. at the moment patient is stable, but there is high likelyhood of progression to transmural ischemia and perforation, requiring surgical intervention. in the case of surgery, patient will likely require an exploratory laparotomy, mesh explantation, ostomy creation and resection of colon, depending on the findings patient may need open abdomen requiring surgical intensive care and agressive monitoring that we can not offer at our institution. Under this circumstances I agree with transfer to higher level of care. At the moment of my evaluation patient is clinically stable and safe for transfer from the surgical standpoint. After discussion with ER staff, I remain available to discuss the case with outside facility as needed. Coding Level of Care Code 12940 Diagnoses Ischemic colon K55.9 Status post hernia repair Z98.890; Z87.19
[2023-05-19] VITALS: BP 131/81; PULSE 94; O2SAT 95
[2023-05-19 00:30] VITALS: BP 121/73; PULSE 98; O2SAT 93
[2023-05-19 00:32] VITALS: RESP 18
[2023-05-19] MEDS: morphine 4 mg/mL SDV 1 mL IVP (00:32)
--- NOTE | 2023-05-19 02:20 | PC.NURSE ---
Report was called to Sisi Pérez RN in [facility]. All questions and concerns were addressed during report.
[2023-05-19 02:28] VITALS: RESP 18; O2SAT 93
[2023-05-19] MEDS: HYDROmorphone 1 mg/mL INJ 1 mL IVP (02:28)
--- NOTE | 2023-05-19 02:36 | PC.NURSE ---
Bedside report given to flight crew transferring pt, all questions and concerns addressed at time of report.
== END 2023-05-19 02:49 | disposition short-term general hospital (02) ==
PROVIDERS: Emergency Provider Nurse Practitioner Family; PCP Physician Assistant
DX: K55.1 Chronic vascular disorders of intestine (principal); Z48.815 Encounter for surgical aftercare following surgery on the digestive system
CPT/HCPCS: 36415; 74022; 74176; 80053; 81001; 83605; 85025; 86140; 87040; 96361; 96365; 96375; 96376; 99285; J1170; J2270; J2405; J2543; J7030

== ENCOUNTER 2023-06-07 16:02 | Outpatient (CLI) | payer MEDICAID, SELFPAY ==
--- NOTE | 2023-06-07 16:11 | CTR_ITS ---
PROCEDURE INFORMATION: Exam: CT Abdomen And Pelvis Without Contrast Exam date and time: 06/07/2023 4:51 PM Age: 58 years old Clinical indication: Abdominal pain; Localized; Right upper quadrant (ruq); Prior surgery; Surgery date: <1 month; Surgery type: Hernia repair with ostomy bag placement per patient; Additional info: Ruq pain TECHNIQUE: Imaging protocol: Computed tomography of the abdomen and pelvis without contrast. Radiation optimization: All CT scans at this facility use at least one of these dose optimization techniques: automated exposure control; mA and/or kV adjustment per patient size (includes targeted exams where dose is matched to clinical indication); or iterative reconstruction. REPORTING DATA: Count of CT and Cardiac NM exams in prior 12 months: This patient has received 2 known CTs and 0 known cardiac nuclear medicine studies in the 12 months prior to the current study. COMPARISON: 1. CT abdomen pelvis con [id number] 05/18/2023 8:05 PM 2. US pelv w/transvag [id number] 04/26/2023 2:[address] abdomen pelvis wo con [id number] 12/23/2022 8:38 PM RADIATION DOSE METRICS: Total DLP (mGy-cm): 600 FINDINGS: Limitations: The absence of intravenous contrast lessens the sensitivity of this study for solid organ abnormalities. Lungs: There is some partial atelectasis at the lung bases. Liver: Peripherally calcified fatty masses in the superior aspect of the liver in segments 4 and 8 unchanged from the recent previous CT scans. No new hepatic lesion is identified. Gallbladder and bile ducts: Gallbladder is collapsed and otherwise unremarkable. There is no common bile duct dilation. Pancreas: The pancreas is normal. Spleen: The spleen is normal. Adrenal glands: The adrenal glands are normal. Kidneys and ureters: There is a left renal collecting system calcification. The right kidney is normal. There is no evidence of hydronephrosis. There is no stone along the course of either ureter. Stomach and bowel: There is no evidence of colitis/diverticulitis. There is no evidence of intestinal obstruction. It appears that a portion of the colon has been resected. Appendix: A normal appendix is identified. Intraperitoneal space: There is no evidence of free intraperitoneal fluid. There is no free intraperitoneal air. Vasculature: The aorta demonstrates mild atherosclerotic calcification. Lymph nodes: There is no evidence of lymphadenopathy. Urinary bladder: Unremarkable as visualized. Reproductive: Solid 40 x 44 mm right ovarian mass again identified. This is described on ultrasound examination 04/26/2023 as being suspicious. Gynecologic consultation recommended. Bones/joints: The lumbar spine demonstrates moderate degenerative changes at multiple levels. Soft tissues: There are postsurgical changes of hernia repair left lower quadrant abdominal wall. There is colostomy left mid abdomen from descending colon. CT/CT abdomen pelvis wo con [id number] IMPRESSION: 1. Postsurgical findings of hernia repair, partial colectomy and colostomy 2. No change in worrisome right ovarian mass. Gynecologic evaluation recommended. 3. No acute finding
== END 2023-06-07 16:03 | disposition home or self-care (01) ==
PROVIDERS: PCP Physician Assistant; Visit Provider Physician Assistant
DX: R10.11 Right upper quadrant pain (principal); Z90.49 Acquired absence of other specified parts of digestive tract; Z93.3 Colostomy status; N83.9 Noninflammatory disorder of ovary, fallopian tube and broad ligament, unspecified; Z98.890 Other specified postprocedural states
CPT/HCPCS: 74176

== ENCOUNTER 2024-05-10 14:14 | Outpatient (CLI) | payer MEDICAID, SELFPAY ==
--- NOTE | 2024-05-10 14:19 | MM_ITS ---
WS: [id number] BILATERAL 3D TOMOSYNTHESIS DIGITAL SCREENING MAMMOGRAPHY WITH CAD CLINICAL INFORMATION: SCREENING HISTORY: Screening mammogram. No current complaints. COMPARISON: 2021 TECHNIQUE: Bilateral CC and MLO views. FINDINGS: The breasts are composed of heterogeneous fibroglandular density tissue, which can limit the detectio n of small underlying mass lesions. No suspicious mass, asymmetry, calcifications, or architectural d istortion. No evidence of malignancy. Incidental punctate and lucent centered calcifications. Biopsy clip RIGHT breast. MM/[place] [id number] IMPRESSION: BI-RADS: 2-Benign FOLLOW UP: 1 Year Follow-up Recommend return to annual screening mammography.
== END 2024-05-10 14:15 | disposition home or self-care (01) ==
LOC: RAD 14:16
PROVIDERS: PCP Physician Assistant; Visit Provider Physician Assistant
DX: Z12.31 Encounter for screening mammogram for malignant neoplasm of breast (principal); R92.1 Mammographic calcification found on diagnostic imaging of breast; R92.323 Mammographic fibroglandular density, bilateral breasts
CPT/HCPCS: 77063; 77067

== ENCOUNTER 2025-06-30 12:54 | Outpatient (CLI) | payer MEDICAID, SELFPAY ==
--- NOTE | 2025-06-30 13:02 | MM_ITS ---
WS: [id number] BILATERAL 3D TOMOSYNTHESIS DIGITAL SCREENING MAMMOGRAPHY WITH CAD CLINICAL INFORMATION: ANNUAL SCREENING HISTORY: Screening mammogram. No current complaints. COMPARISON: 2023 TECHNIQUE: Bilateral CC and MLO views. FINDINGS: Scattered fibroglandular densities bilaterally. No suspicious focal mass, asymmetry, calcifications, or architectural distortion. No evidence of malignancy. Incidental punctate and lucent centered calcifications. Stable biopsy clip RIGHT breast MM/MM scr BI tomosynthesis [id number] IMPRESSION: DENSITY: There are scattered areas of fibroglandular density. BI-RADS: 2 - Benign. FOLLOW UP: 1 Year Follow-up Recommend return to annual screening mammography.
== END 2025-06-30 12:55 | disposition home or self-care (01) ==
PROVIDERS: PCP Physician Assistant; Visit Provider Physician Assistant
DX: Z12.31 Encounter for screening mammogram for malignant neoplasm of breast (principal); R92.323 Mammographic fibroglandular density, bilateral breasts; R92.1 Mammographic calcification found on diagnostic imaging of breast; Z96.89 Presence of other specified functional implants
CPT/HCPCS: 77063; 77067